=== PATIENT | female | born 1970 | race African-American/Black ===

== ENCOUNTER 2020-05-07 19:43 | Emergency (ER) | payer SELFPAY ==
[2020-05-07 19:58] VITALS: BP 165/96; PULSE 97; TEMP 98.4; BMI 32.1
[2020-05-07] MEDS ORDERED: IBUPROFEN 400 MG TABLET (FP) PO ONE ×3 (20:07→20:13)
== END 2020-05-07 21:01 | disposition home or self-care (01) ==
LOC: JERFT 19:43
PROC: 2W3CX1Z Immobilization of Right Lower Arm using Splint (ICD-10-PCS; principal; 2020-05-07)
DX: S62.344A Nondisplaced fracture of base of fourth metacarpal bone, right hand, initial encounter for closed fracture (principal)
CPT/HCPCS: 73110-TC-RT-FY; 73130-TC-RT-FY; 99284-25

== ENCOUNTER 2020-06-20 19:20 | Inpatient (IN) | payer OTHER ==
[2020-06-20] MEDS ORDERED: ACETAMINOPHEN 500 MG TABLET (FP) PO ONE (20:57)
[2020-06-20] MEDS ORDERED: ACETAMINOPHEN 325 MG TABLET (FP) ONE (21:14)
[2020-06-20] MEDS ORDERED: ENOXAPARIN NA (PORCINE) 40 MG/0.4 ML DISP.SYRIN SQ ONE (23:47)
[2020-06-20] MEDS ORDERED: IBUPROFEN 600 MG TABLET (FP) PO ONE (23:57)
[2020-06-21 00:33] LABS: BASO % 1.7 % (0-2.0); EOS % 3.2 % (0-4.5); HEMATOCRIT 42.5 % (32.4-45.2); HEMOGLOBIN 14.1 GM/dL (10.7-15.3); LYMPH % 43.5 % (8-40); MCH 30.9 pg (25.7-33.7); MCHC 33.1 g/dl (32.0-36.0); MEAN CELL VOLUME 93.4 fl (80-96); MEAN PLT VOLUME 10.2 fl (7.5-11.1); MONO % 5.8 % (3.8-10.2); NEUT % 45.8 % (42.8-82.8); PLATELET COUNT 278 K/MM3 (134-434); RBC 4.56 M/mm3 (3.60-5.2); RDW 13.3 % (11.6-15.6); WHITE BLOOD COUNT 9.4 K/mm3 (4.0-10.0)
[2020-06-21 00:48] LABS: INR 0.97 (0.83-1.09); PROTHROMBIN TIME (PATIENT) 11.8 SEC (9.7-13.0)
[2020-06-21] MEDS ORDERED: IBUPROFEN 600 MG TABLET (FP) PO ONE (00:48)
[2020-06-21 00:50] LABS: ACTIVATED PTT 34.2 SECONDS (25.2-36.5)
[2020-06-21 00:59] LABS: ALBUMIN 3.7 g/dl (3.4-5.0); BLOOD UREA NITROGEN 9.5 mg/dL (7-18); CALCIUM 9.5 mg/dL (8.5-10.1)
[2020-06-21 01:02] LABS: CREATININE 0.9 mg/dL (0.55-1.3)
[2020-06-21 01:04] LABS: BILIRUBIN,TOTAL 0.3 mg/dL (0.2-1); TOT PROT 7.4 g/dl (6.4-8.2)
[2020-06-21] MEDS ORDERED: ACETAMINOPHEN 325 MG TABLET (FP) PO PRN (06:37)
[2020-06-21] MEDS ORDERED: ENOXAPARIN NA (PORCINE) 40 MG/0.4 ML DISP.SYRIN SQ SCH (10:00)
[2020-06-21] MEDS: CHLORTHALIDONE 25 MG TABLET PO SCH (12:59)
[2020-06-21] MEDS: NICOTINE 14 MG/24 HOURS TOPICAL PATCH TD SCH (12:59)
[2020-06-21] MEDS: amLODIPine BESYLATE 5 MG TABLET (FP) PO SCH (12:59)
[2020-06-21] MEDS ORDERED: amLODIPine BESYLATE 5 MG TABLET (FP) ONE (13:01)
[2020-06-21] MEDS ORDERED: ENOXAPARIN NA (PORCINE) 40 MG/0.4 ML DISP.SYRIN SQ ONE (13:01)
[2020-06-21] MEDS ORDERED: methylPREDNISolone NA SUCC 125 MG/2 ML VIAL ONE (16:10)
[2020-06-21] MEDS: methylPREDNISolone NA SUCC 125 MG/2 ML VIAL IVPUSH SCH ×2 (16:16→21:19)
[2020-06-21] MEDS ORDERED: ATORVASTATIN CA 40 MG TABLET (FP) ONE (21:10)
[2020-06-21] MEDS: ATORVASTATIN CA 40 MG TABLET (FP) PO SCH (21:19)
[2020-06-22] MEDS: methylPREDNISolone NA SUCC 125 MG/2 ML VIAL IVPUSH SCH ×4 (03:44→21:46)
[2020-06-22 08:00] LABS: HEMATOCRIT 41.2 % (32.4-45.2); HEMOGLOBIN 13.2 GM/dL (10.7-15.3); MCH 30.1 pg (25.7-33.7); MCHC 32.1 g/dl (32.0-36.0); MEAN CELL VOLUME 93.9 fl (80-96); MEAN PLT VOLUME 10.9 fl (7.5-11.1); PLATELET COUNT 259 K/MM3 (134-434); RBC 4.39 M/mm3 (3.60-5.2); RDW 13.4 % (11.6-15.6); WHITE BLOOD COUNT 20.3 K/mm3 (4.0-10.0)
[2020-06-22 08:24] LABS: CALCIUM 9.6 mg/dL (8.5-10.1)
[2020-06-22 08:25] LABS: BLOOD UREA NITROGEN 18.8 mg/dL (7-18)
[2020-06-22 08:28] LABS: CREATININE 1.1 mg/dL (0.55-1.3)
[2020-06-22] MEDS ORDERED: methylPREDNISolone NA SUCC 125 MG/2 ML VIAL ONE ×3 (08:42→21:45)
[2020-06-22] MEDS ORDERED: amLODIPine BESYLATE 5 MG TABLET (FP) ONE ×2 (09:39→13:11)
[2020-06-22] MEDS: amLODIPine BESYLATE 5 MG TABLET (FP) PO SCH (09:58)
[2020-06-22] MEDS: NICOTINE 14 MG/24 HOURS TOPICAL PATCH TD SCH (09:58)
[2020-06-22] MEDS: CHLORTHALIDONE 25 MG TABLET PO SCH (09:58)
[2020-06-22 12:09] LABS: BF GLUCOSE (CSF ONLY) 99 mg/dL (40-70)
[2020-06-22] MEDS ORDERED: PANTOPRAZOLE SODIUM 40 MG/100 ML BAG IVPB ONE (12:33)
[2020-06-22 12:36] LABS: CSF APPEARANCE CLEAR; CSF COLOR COLORLESS; CSF WBC 1
[2020-06-22] MEDS: PANTOPRAZOLE SODIUM 40 MG VIAL IVPUSH SCH (12:46)
[2020-06-22] MEDS ORDERED: amLODIPine BESYLATE 5 MG TABLET (FP) PO ONE (12:57)
[2020-06-22] MEDS ORDERED: ATORVASTATIN CA 40 MG TABLET (FP) ONE (21:54)
[2020-06-22] MEDS: ATORVASTATIN CA 40 MG TABLET (FP) PO SCH (22:03)
[2020-06-23] MEDS: methylPREDNISolone NA SUCC 125 MG/2 ML VIAL IVPB SCH ×2 (05:06→09:54)
[2020-06-23 05:44] VITALS: BMI 30.9
[2020-06-23] MEDS ORDERED: methylPREDNISolone NA SUCC 1000 MG/8 ML VIAL IVPB ONE (06:00)
[2020-06-23] MEDS ORDERED: methylPREDNISolone NA SUCC 125 MG/2 ML VIAL IVPB SCH (06:00)
[2020-06-23] MEDS ORDERED: PT OWN MED DRAWER 7, Y5N ONE (09:07)
[2020-06-23] MEDS: NICOTINE 14 MG/24 HOURS TOPICAL PATCH TD SCH (09:09)
[2020-06-23] MEDS: PANTOPRAZOLE SODIUM 40 MG VIAL IVPUSH SCH (09:54)
[2020-06-23] MEDS: CHLORTHALIDONE 25 MG TABLET PO SCH (09:55)
[2020-06-23] MEDS ORDERED: amLODIPine BESYLATE 10 MG TABLET (FP) PO SCH (10:00)
[2020-06-23 10:04] LABS: BASO % 0.3 % (0-2.0); HEMATOCRIT 40.6 % (32.4-45.2); HEMOGLOBIN 13.3 GM/dL (10.7-15.3); LYMPH % 7.3 % (8-40); MCH 30.4 pg (25.7-33.7); MCHC 32.7 g/dl (32.0-36.0); MEAN CELL VOLUME 93.2 fl (80-96); MEAN PLT VOLUME 10.8 fl (7.5-11.1); MONO % 1.6 % (3.8-10.2); NEUT % 90.8 % (42.8-82.8); PLATELET COUNT 277 K/MM3 (134-434); RBC 4.36 M/mm3 (3.60-5.2); RDW 13.4 % (11.6-15.6); WHITE BLOOD COUNT 24.1 K/mm3 (4.0-10.0)
[2020-06-23 10:19] LABS: CALCIUM 9.6 mg/dL (8.5-10.1)
[2020-06-23 10:20] LABS: ALBUMIN 3.2 g/dl (3.4-5.0); BLOOD UREA NITROGEN 19.9 mg/dL (7-18); MAGNESIUM 2.2 mg/dL (1.8-2.4)
[2020-06-23 10:23] LABS: CREATININE 0.9 mg/dL (0.55-1.3)
[2020-06-23 10:24] LABS: BILIRUBIN,TOTAL 0.2 mg/dL (0.2-1); TOT PROT 6.7 g/dl (6.4-8.2)
[2020-06-23 10:26] VITALS: BP 136/76; PULSE 94; TEMP 98
[2020-06-23 14:47] LABS: ANISOCYTOSIS 0; MACROCYTOSIS 0; PLATELET ESTIMATE NORMAL
[2020-06-24 16:08] LABS: MYELIN BASIC PROTEIN,CSF 6.1 ng/mL (0.0-3.7)
== END 2020-06-23 13:18 | disposition home or self-care (01) | DRG 43 ==
LOC: JER 19:20 → JERBED 06-21 → J5S 06-22 22:44
PROVIDERS: ADMIT Hospitalist
PROC: 009U3ZX Drainage of Spinal Canal, Percutaneous Approach, Diagnostic (ICD-10-PCS; principal; 2020-06-22)
DX: G35 Multiple sclerosis (principal); I16.0 Hypertensive urgency; R93.0 Abnormal findings on diagnostic imaging of skull and head, not elsewhere classified; F17.210 Nicotine dependence, cigarettes, uncomplicated; E78.5 Hyperlipidemia, unspecified; D72.829 Elevated white blood cell count, unspecified; T38.0X5A Adverse effect of glucocorticoids and synthetic analogues, initial encounter; S09.90XA Unspecified injury of head, initial encounter; W01.10XA Fall on same level from slipping, tripping and stumbling with subsequent striking against unspecified object, initial encounter; Y92.89 Other specified places as the place of occurrence of the external cause
CPT/HCPCS: 36415; 62272; 70450-TC; 70551-TC; 70552-TC; 71045-TC-FY; 76000-TC-FY; 77002-TC-FY; 80048; 80053; 80061; 82945; 83036; 83721; 83735; 83873; 83916; 84100; 84157; 84443; 85025; 85027; 85610; 85730; 87070; 87205; 93005; 93010; 97116-GP; 97161-GP; 99285-25; C9803; U0003

== ENCOUNTER 2023-05-29 16:00 | Emergency (ER) | payer BC ==
[2023-05-29 16:11] VITALS: BP 181/112; PULSE 80; RESP 18; TEMP 98.4; BMI 31.0
[2023-05-29] MEDS ORDERED: ASPIRIN 81 MG CHEWABLE TABLETS PO ONE (17:57)
[2023-05-29] MEDS ORDERED: FAMOTIDINE 20 MG/50 ML IVPB 20 MG/50 ML MG IVPB ONE (17:57)
[2023-05-29] MEDS ORDERED: MAG HYDROX/AL HYDROX/SIMETH 30 ML UNIT-DOSE CUP PO ONE (17:57)
[2023-05-29] MEDS ORDERED: METOCLOPRAMIDE HCL INJECTION 10 MG/2 ML VIAL IVPUSH ONE (19:42)
== END 2023-05-29 20:50 | disposition left against medical advice (07) ==
LOC: JER 16:00
DX: R42 Dizziness and giddiness (principal); R07.89 Other chest pain; R51.9 Headache, unspecified
CPT/HCPCS: 71046-TC-FY; 93005; 93010; 99284-25

== ENCOUNTER 2024-12-10 07:40 | Day surgery (SDC) | payer BC ==
[2024-12-02 15:30] VITALS: BMI 30.5
[2024-12-10] MEDS ORDERED: PROPOFOL 80 ML ONE (07:44)
[2024-12-10] MEDS ORDERED: LIDOCAINE HCL/PF 2% SDV 5ML VIAL ONE (07:45)
[2024-12-10 08:06] VITALS: RESP 18
[2024-12-10] MEDS ORDERED: ONDANSETRON 4 MG/2 ML VIAL ONE (08:47)
[2024-12-10 09:09] VITALS: TEMP 97.3
[2024-12-10 09:27] VITALS: BP 102/61; PULSE 88
== END 2024-12-10 09:30 | disposition home or self-care (01) ==
LOC: FASU-ENDO 07:40
PROVIDERS: ATTEND Internal Medicine Gastroenterology
PROC: 0DBP8ZX Excision of Rectum, Via Natural or Artificial Opening Endoscopic, Diagnostic (ICD-10-PCS; principal; 2024-12-10 08:27)
DX: Z12.11 Encounter for screening for malignant neoplasm of colon (principal); D12.8 Benign neoplasm of rectum; K64.4 Residual hemorrhoidal skin tags; K57.30 Diverticulosis of large intestine without perforation or abscess without bleeding
CPT/HCPCS: 88305-TC